=== PATIENT | male | born 1960 | race Caucasian/White ===

== ENCOUNTER → 2023-12-30 | Outpatient (CLI) | payer BC ==
[~2023-12-30] MED LIST: ALDACTONE 25MG25 M1 PO; ALTACE 2.5MG T2.5 MG PO; ASPIRIN 32325 MG/TAB PO; ASPIRIN 81M81 MG/TA2 PO; BD ALCOHOL1 SWA MC; BENADRYL25 M2 PO; COREG 3.123.125 MG/T PO; ELIQUIS 5MG PO; FREESTYLE PREC1 EAC5 MC; GLUCAGON EMERGEN1 M1 SQ; GLUCOSE TEST ST1 DEV MC; GLUTOSE 1515 GM PO; INSULIN PEN NE1 EAC1 MC; JARDIANCE10 PO; LANCETS MC; LASIX 40MG TABL40 MG PO; LEVEMIR FLEX100 U/ML SQ; LIPITOR 40MG TA40 MG PO; MUCINEX 60600 MG/TA1 PO; NOVOLOG FLEX100 U/ML SQ
== END ==
LOC: DIA.ED 11:09
DX: E11.59 Type 2 diabetes mellitus with other circulatory complications (principal); Z79.84 Long term (current) use of oral hypoglycemic drugs; E78.5 Hyperlipidemia, unspecified; I10 Essential (primary) hypertension
CPT/HCPCS: G0108

== ENCOUNTER 2024-03-06 12:00 | Outpatient (RCR) | payer BC | END 2024-03-07 | disposition home or self-care (01) | LOC: COL.CR | DX: I50.21 Acute systolic (congestive) heart failure (principal) ==